=== PATIENT | male | born 1970 | race Caucasian/White ===

== ENCOUNTER 2020-10-09 09:00 | Day surgery (SDC) | payer SELFPAY ==
[~2020-10-09] VITALS: Ht 185.4 cm; Wt 134.1 kg
[2020-10-09] MEDS ORDERED: HYDROCODON-ACE1 EA10 PO (11:39)
--- NOTE | 2020-10-09 11:50 | NUR ---
10/09/20 1150 Amparo Tierney 1138-PATIENT ARRIVED TO PACU ON 6L MASK RR EVEN. RN HOLDING JAW TO MAINTAIN OPEN AIRWAY. PATIENT THEN AROUSES TO VERBAL AND TACTILE STIMULI DENIES PAIN OR NAUSEA. SR. IVF INFUSING. DRESSINGS INTACT TO LITERAL HANDS. GOOD CAP REFILL AND WARMTH. IVONNE RADIAL PULSE DUE TO DRESSING. ICE AND ELEVATION. 1145-PATIENT AWAKE ON RA RR EVEN 1149-PATIENT AWAKE DENIES PAIN OR NAUSEA. RA 93% RR EVEN
--- NOTE | 2020-10-09 14:06 | NUR ---
1250: VS CHECKED. DISCHARGE INSTRUCTIONS GIVEN TO PATIENT. PATIENT ASSISTED OOB AND TO WALK AROUND ROOM. PATIENT GETTING DRESSED WITH ASSISTANCE FROM GIRLFRIEND. 1315: IV DC'D WNL. TIP INTACT. DRESSING APPLIED. PATIENT DISCHARGED TO HOME WITH GIRLFRIEND VIA WHEELCHAIR.
--- NOTE | 2020-10-14 08:46 | OR ---
[facility] [address] [facility] [place], [place] [address] Signed DATE OF OPERATION: 10/09/2020 SURGEON: Guevara Cormier MD PREOPERATIVE DIAGNOSIS: Bilateral carpal tunnel. POSTOPERATIVE DIAGNOSIS: Bilateral carpal tunnel. PROCEDURE PERFORMED: Carpal tunnel release, bilateral. PARALEGALS: None. ANESTHESIA: General. BLOOD LOSS: None. TOURNIQUET TIME: Right 8 minutes, 7 minutes on the left. BRIEF HISTORY: Selwyn is a 50-year-old gentleman with pain in his wrist and numbness and tingling in both hands. Nerve conduction studies were consistent with carpal tunnel and he wished to proceed with releases. He was fairly insistent on getting them both done at the same time secondary to timing issues. We agreed after discussion, the risk of possible infections and he understood. DESCRIPTION OF PROCEDURE: Once consent was obtained, he was taken to the operating room, after adequate anesthesia he was placed on operating table. All downside pressure points well padded. Both arms were placed in a tourniquet. The right arm was approached first, it was prepped and draped in a standard sterile fashion. The wrist was approached through a 1.5 cm incision in the distal wrist crease carried through skin and subcutaneous tissue. The palmaris longus was identified, retracted and protected. The transverse carpal ligament was identified under loupe magnification and was dissected free of overlying soft tissue Electronically Signed By: GUEVARA CORMIER MD 10/14/20 0846 PATIENT NAME: SELWYN FOOTE OPERATIVE REPORT DATE OF : 72 REPORT #: [id number] PHYSICIAN: GUEVARA CORMIER MD PCP: NO PRIMARY CARE PHYSICIAN REPORT IS CONFIDENTIAL AND NOT TO BE RELEASED WITHOUT AUTHORIZATION [address] [place], [place] [address] Signed proximally and distally. It was then released using tenotomy scissors approximately a cm and distally to the distal extent. This was palpated using a [place] and was found to be completely released. The wound was copiously irrigated with normal saline and closed with 3-0 nylon and injected with 6 mL 0.25% Marcaine plain. Wound was dressed with Adaptic gauze and roll gauze. The tourniquet was then released. Attention was then turned to the opposite side. The same procedure was performed. The patient was then awakened, taken to the recovery room in satisfactory condition. All sponge, needle, and instrument counts were correct. Guevara Cormier MD BA/ALVAROL /[id number] Copies: ~ Electronically Signed By: GUEVARA CORMIER MD 10/14/20 0846 PATIENT NAME: SELWYN FOOTE OPERATIVE REPORT DATE OF : 72 REPORT #: [id number] PHYSICIAN: GUEVARA CORMIER MD PCP: NO PRIMARY CARE PHYSICIAN REPORT IS CONFIDENTIAL AND NOT TO BE RELEASED WITHOUT AUTHORIZATION
== END 2020-10-09 13:12 | disposition home or self-care (01) ==
LOC: DS 09:00
PROVIDERS: ATTEND Specialist
PROC: 01N50ZZ Release Median Nerve, Open Approach (ICD-10-PCS; 2020-10-09)
PROC: 01N50ZZ Release Median Nerve, Open Approach (ICD-10-PCS; principal; 2020-10-09 10:30)
DX: G56.03 Carpal tunnel syndrome, bilateral upper limbs (principal)
CPT/HCPCS: 01810; J0690; J1885; J2001; J2250; J2405; J2704; J3010; J7121